=== PATIENT | female | born 1930 | race Caucasian/White ===

== ENCOUNTER 2020-11-29 17:21 | Inpatient (IN) | payer MEDICARE, SELFPAY ==
[~2020-11-29] VITALS: Ht 162.6 cm; Wt 76.7 kg
[2020-11-29 17:37] VITALS: BP_SYST 118
[2020-11-29 18:14] LABS: EOSINOPHILS % (AUTO) 0.5 % (0.0-4.0)
[2020-11-29 18:18] LABS: ANION GAP 10 (5-15); CALCIUM 8.5 mg/dL (8.4-11.0); CHLORIDE 104 mmol/L (98-107); CREATININE 1.14 mg/dL (0.55-1.30); GLUCOSE 145 mg/dL (70-99); POTASSIUM 3.6 mmol/L (3.5-5.1); SODIUM SERUM 138 mmol/L (136-145); UREA NITROGEN, BLOOD 22 mg/dL (8-21)
[2020-11-29 18:24] LABS: ALANINE AMINOTRANSFERASE 41 U/L (12-78); ASPARTATE AMINOTRANSFERASE 52 U/L (10-37); BASOPHILS # (AUTO) 0.2 K/uL (0.0-0.2); BASOPHILS % (AUTO) 4.1 % (0.0-2.0); BILIRUBIN,DIRECT 0.1 mg/dL (0.0-0.3); HEMATOCRIT 40.2 % (36-48); HEMOGLOBIN 13.5 g/dL (12.0-16.0); LIPASE 107 U/L (73-393); LYMPHOCYTES # (AUTO) 1.4 K/uL (1.0-5.5); LYMPHOCYTES % (AUTO) 28.9 % (20.5-51.5); MEAN CORPUSCULAR HEMOGLOBIN 32 pg (27-31); MEAN CORPUSCULAR HGB CONC 34 % (32-36); MEAN CORPUSCULAR VOLUME 96 fL (79.0-98.0); MONOCYTES # (AUTO) 0.3 K/uL (0.0-1.0); NEUTROPHILS # (AUTO) 2.9 K/uL (1.8-7.7); NEUTROPHILS % (AUTO) 60.5 % (40.0-70.0); PLATELET COUNT (AUTO) 140 K/uL (130-430); RED CELL DISTRIBUTION WIDTH 14.1 % (9.0-15.0); TOTAL BILIRUBIN 0.4 mg/dL (0.0-1.0); WHITE BLOOD COUNT (AUTO) 4.8 K/uL (4.8-10.8)
[2020-11-29] MEDS ORDERED: LEVO25TA76 PO (18:26)
[2020-11-29] MEDS ORDERED: ASPI-859 PO (18:26)
[2020-11-29] MEDS ORDERED: BENZ100C92 PO (18:26)
[2020-11-29] MEDS ORDERED: ALLO100T91 PO (18:26)
[2020-11-29] MEDS ORDERED: IRBE75TA29 PO (18:26)
[2020-11-29] MEDS ORDERED: METO-542 (18:26)
[2020-11-29] MEDS ORDERED: AMLO5TAB92 PO (18:26)
[2020-11-29] MEDS ORDERED: ATOR20TA64 PO (18:26)
[2020-11-29 18:44] LABS: C-REACTIVE PROTEIN QUANT 5.6 mg/dL (0-0.5)
[2020-11-29] MEDS ORDERED: AZITHROMYCIN 500 MG in NS 250 ML IV ONE (18:45)
[2020-11-29] MEDS ORDERED: DEXAMETHASONE SOD PHOSPHATE 10 MG/ML VIAL IVP ONE (18:45)
[2020-11-29] MEDS ORDERED: cefTRIAXone 1 GM VIAL IM ONE (18:45)
[2020-11-29] MEDS ORDERED: ASPIRIN 325 MG TABLET PO ONE (18:45)
[2020-11-29] MEDS ORDERED: AZITHROMYCIN 500 MG/VIAL (ZITHROMAX) IV ONE (19:26)
[2020-11-29] MEDS ORDERED: ceFAZolin SODIUM 1 GM VIAL ONE (20:52)
[2020-11-29] MEDS ORDERED: cefTRIAXone 1 GM VIAL ONE (20:54)
[2020-11-29 22:08] LABS: INR 0.9 (0.8-1.2); PROTHROMBIN TIME 9.6 SECS (9.5-12.5)
[2020-11-29] MEDS ORDERED: HYDROcodone/ACETAMIN 5-325 MG TAB (NORCO/ VICODIN) PO PRN (23:15)
[2020-11-29] MEDS ORDERED: ACETAMINOPHEN 325 MG TABLET PO PRN (23:15)
[2020-11-29] MEDS ORDERED: cefTRIAXone 2 GM VIAL ONE (23:40)
[2020-11-30] MEDS ORDERED: ENOXAPARIN SODIUM 40 MG/0.4 ML SYRINGE ONE ×2 (00:06→22:53)
[2020-11-30] MEDS: ENOXAPARIN SODIUM 40 MG/0.4 ML SYRINGE SUBCUT SCH ×3 (00:11→22:30)
[2020-11-30 02:34] LABS: BILIRUBIN,URINE NEGATIVE (NEGATIVE); BLOOD, URINE NEGATIVE (NEGATIVE); CLARITY/URINE CLEAR (CLEAR); COLOR,URINE YELLOW (YELLOW); GLUCOSE,URINE TRACE (NEGATIVE); KETONES,URINE NEGATIVE (NEGATIVE); LEUKOCYTE ESTERASE ,URINE NEGATIVE (NEGATIVE); NITRITE, URINE NEGATIVE (NEGATIVE); PROTEIN URINE 1+ (NEGATIVE); UROBILINOGEN,URINE 0.2 (0.2-1.0)
[2020-11-30 04:00] VITALS: BP_SYST 124
[2020-11-30] MEDS: NORMAL SALINE 5 ML DISP.SYRIN IVF SCH ×3 (06:17→22:00)
[2020-11-30 08:22] LABS: BASOPHILS % (AUTO) 0.2 % (0.0-2.0); HEMATOCRIT 40.9 % (36-48); LYMPHOCYTES # (AUTO) 0.7 K/uL (1.0-5.5); LYMPHOCYTES % (AUTO) 25.3 % (20.5-51.5); MEAN CORPUSCULAR HEMOGLOBIN 32 pg (27-31); MEAN CORPUSCULAR HGB CONC 34 % (32-36); MEAN CORPUSCULAR VOLUME 95 fL (79.0-98.0); MONOCYTES # (AUTO) 0.1 K/uL (0.0-1.0); MONOCYTES % (AUTO) 4.6 % (1.7-9.3); NEUTROPHILS # (AUTO) 1.9 K/uL (1.8-7.7); NEUTROPHILS % (AUTO) 69.9 % (40.0-70.0); PLATELET COUNT (AUTO) 132 K/uL (130-430); RED BLOOD CELL COUNT(AUTO) 4.32 MIL/uL (4.2-6.2); RED CELL DISTRIBUTION WIDTH 13.7 % (9.0-15.0); WHITE BLOOD COUNT (AUTO) 2.7 K/uL (4.8-10.8)
[2020-11-30 08:43] LABS: ALANINE AMINOTRANSFERASE 46 U/L (12-78); ALBUMIN 2.9 g/dL (3.4-4.8); ANION GAP 11 (5-15); ASPARTATE AMINOTRANSFERASE 47 U/L (10-37); CALCIUM 8.5 mg/dL (8.4-11.0); CHLORIDE 106 mmol/L (98-107); CREATININE 0.88 mg/dL (0.55-1.30); GLUCOSE 167 mg/dL (70-99); POTASSIUM 4.4 mmol/L (3.5-5.1); SODIUM SERUM 142 mmol/L (136-145); TOTAL BILIRUBIN 0.2 mg/dL (0.0-1.0); UREA NITROGEN, BLOOD 21 mg/dL (8-21)
[2020-11-30 08:54] LABS: C-REACTIVE PROTEIN QUANT 5.1 mg/dL (0-0.5)
[2020-11-30] MEDS: LEVOTHYROXINE SODIUM 0.025 MG TABLET PO SCH (10:30)
[2020-11-30] MEDS: DEXAMETHASONE SOD PHOSPHATE 4 MG/ML VIAL IVP SCH (10:30)
[2020-11-30] MEDS: amLODIPine BESYLATE 5 MG TABLET PO SCH (10:30)
[2020-11-30] MEDS: ASPIRIN 81 MG TABLET(ECOTRIN) PO SCH (10:30)
[2020-11-30] MEDS: ALLOPURINOL 100 MG TABLET (ZYLOPRIM) PO SCH (10:30)
[2020-11-30] MEDS: ATORVASTATIN 20 MG TABLET PO SCH (10:30)
[2020-11-30] MEDS: METOPROLOL SUCCINATE 50 MG TAB.SR.24H (TOPROL XL) PO SCH (10:30)
[2020-11-30 14:22] VITALS: BP_SYST 112
[2020-11-30 16:02] VITALS: BP_SYST 122
[2020-11-30 20:00] VITALS: BP_SYST 124
[2020-11-30] MEDS ORDERED: AZITHROMYCIN 500 MG in NS 250 ML IV SCH (21:00)
[2020-11-30] MEDS ORDERED: cefTRIAXone 1 GM IVPB PREMIX 0 ML IV ONE (22:14)
[2020-11-30] MEDS ORDERED: AZITHROMYCIN 500 MG/VIAL (ZITHROMAX) IV ONE (22:14)
[2020-11-30] MEDS ORDERED: cefTRIAXone 1 GM VIAL ONE (22:20)
[2020-12-01] VITALS: BP_SYST 118
[2020-12-01] MEDS: NORMAL SALINE 5 ML DISP.SYRIN IVF SCH ×2 (05:36→14:00)
[2020-12-01 06:59] LABS: BASOPHILS % (AUTO) 0.2 % (0.0-2.0); HEMATOCRIT 40.8 % (36-48); LYMPHOCYTES # (AUTO) 1.1 K/uL (1.0-5.5); LYMPHOCYTES % (AUTO) 10.8 % (20.5-51.5); MEAN CORPUSCULAR HEMOGLOBIN 32 pg (27-31); MEAN CORPUSCULAR HGB CONC 34 % (32-36); MEAN CORPUSCULAR VOLUME 94 fL (79.0-98.0); MONOCYTES # (AUTO) 0.5 K/uL (0.0-1.0); MONOCYTES % (AUTO) 4.9 % (1.7-9.3); NEUTROPHILS # (AUTO) 8.7 K/uL (1.8-7.7); NEUTROPHILS % (AUTO) 84.1 % (40.0-70.0); PLATELET COUNT (AUTO) 166 K/uL (130-430); RED BLOOD CELL COUNT(AUTO) 4.32 MIL/uL (4.2-6.2); RED CELL DISTRIBUTION WIDTH 13.9 % (9.0-15.0); WHITE BLOOD COUNT (AUTO) 10.3 K/uL (4.8-10.8)
[2020-12-01 07:19] LABS: ALANINE AMINOTRANSFERASE 51 U/L (12-78); ALBUMIN 2.8 g/dL (3.4-4.8); ANION GAP 10 (5-15); ASPARTATE AMINOTRANSFERASE 50 U/L (10-37); CALCIUM 8.8 mg/dL (8.4-11.0); CHLORIDE 104 mmol/L (98-107); CREATININE 0.94 mg/dL (0.55-1.30); GLUCOSE 125 mg/dL (70-99); POTASSIUM 4.2 mmol/L (3.5-5.1); SODIUM SERUM 140 mmol/L (136-145); TOTAL BILIRUBIN 0.3 mg/dL (0.0-1.0); UREA NITROGEN, BLOOD 24 mg/dL (8-21)
[2020-12-01 08:00] VITALS: BP_SYST 149
[2020-12-01] MEDS: ASPIRIN 81 MG TABLET(ECOTRIN) PO SCH (09:12)
[2020-12-01] MEDS: ATORVASTATIN 20 MG TABLET PO SCH (09:12)
[2020-12-01] MEDS: LEVOTHYROXINE SODIUM 0.025 MG TABLET PO SCH (09:13)
[2020-12-01] MEDS: amLODIPine BESYLATE 5 MG TABLET PO SCH (09:13)
[2020-12-01] MEDS: ALLOPURINOL 100 MG TABLET (ZYLOPRIM) PO SCH (09:14)
[2020-12-01] MEDS: METOPROLOL SUCCINATE 50 MG TAB.SR.24H (TOPROL XL) PO SCH (09:14)
[2020-12-01] MEDS: DEXAMETHASONE SOD PHOSPHATE 4 MG/ML VIAL IVP SCH (09:15)
[2020-12-01] MEDS: ENOXAPARIN SODIUM 40 MG/0.4 ML SYRINGE SUBCUT SCH (09:15)
[2020-12-01] MEDS ORDERED: ENOXAPARIN SODIUM 40 MG/0.4 ML SYRINGE ONE (09:17)
[2020-12-01 11:05] VITALS: BP_SYST 139
[2020-12-01] MEDS ORDERED: DEC4 PO (15:31)
[2020-12-01] MEDS ORDERED: AMOX-426 PO (15:33)
[2020-12-01 15:35] VITALS: BP_SYST 135
[2020-12-01 16:05] VITALS: BP_SYST 118
== END 2020-12-01 17:00 | disposition home or self-care (01) | DRG 871 ==
LOC: SED 17:21 → STU 22:56 → SMU 12-01 12:24
PROVIDERS: ADMIT Internal Medicine Hospice and Palliative Medicine; ATTEND Internal Medicine Hospice and Palliative Medicine
DX: A41.9 Sepsis, unspecified organism (principal); U07.1 COVID-19; I21.4 Non-ST elevation (NSTEMI) myocardial infarction; J96.21 Acute and chronic respiratory failure with hypoxia; J12.82 Pneumonia due to coronavirus disease 2019; E03.9 Hypothyroidism, unspecified; E78.5 Hyperlipidemia, unspecified; I10 Essential (primary) hypertension
CPT/HCPCS: 36415; 71045; 80048; 80053; 80076; 81003; 82728; 83605; 83690-TC; 83880; 84484; 85025; 85379; 85384-TC; 85610-TC; 85730-TC; 86140; 87040-TC; 93005; 96365; 96375; 99285; J0456; J0690; J0696; J1100; J1650; J7040; J7050; J7060; U0003

== ENCOUNTER 2020-12-03 15:07 | Inpatient (IN) | payer MEDICARE, SELFPAY ==
[~2020-12-03] VITALS: Ht 142.2 cm; Wt 60.8 kg
[~2020-12-03 15:07] MED LIST: ALLO100T91 PO; AMLO5TAB92 PO; AMOX-426 PO; ASPI-859 PO; ATOR20TA64 PO; BENZ100C92 PO; DEC4 PO; IRBE75TA29 PO; LEVO25TA76 PO; METO-542
[2020-12-03 15:25] VITALS: BP_SYST 139
--- NOTE | 2020-12-03 15:31 | NUR ---
Placed in room FT3 . Placed on hall monitor, blood pressure machine and pulse oximeter. To gown for exam. Side rails up.
--- NOTE | 2020-12-03 16:29 | NUR ---
MARIA TO ASSUME CARE, PT CALM, ALERT, RESP TACHYPNEIC, CALM, UNLABORED, DENIES CP/SOB. FULL COMPLETE SENTNECES, SKIN WARM AND DRY
[2020-12-03 17:30] LABS: BASOPHILS % (AUTO) 0.1 % (0.0-2.0); HEMATOCRIT 43.2 % (36-48); HEMOGLOBIN 14.7 g/dL (12.0-16.0); LYMPHOCYTES # (AUTO) 0.7 K/uL (1.0-5.5); LYMPHOCYTES % (AUTO) 5.6 % (20.5-51.5); MEAN CORPUSCULAR HEMOGLOBIN 32 pg (27-31); MEAN CORPUSCULAR HGB CONC 34 % (32-36); MEAN CORPUSCULAR VOLUME 95 fL (79.0-98.0); MONOCYTES # (AUTO) 0.6 K/uL (0.0-1.0); MONOCYTES % (AUTO) 5.1 % (1.7-9.3); NEUTROPHILS # (AUTO) 10.8 K/uL (1.8-7.7); NEUTROPHILS % (AUTO) 89.2 % (40.0-70.0); PLATELET COUNT (AUTO) 210 K/uL (130-430); RED BLOOD CELL COUNT(AUTO) 4.55 MIL/uL (4.2-6.2); RED CELL DISTRIBUTION WIDTH 13.7 % (9.0-15.0); WHITE BLOOD COUNT (AUTO) 12.1 K/uL (4.8-10.8)
[2020-12-03 17:53] LABS: ANION GAP 11 (5-15); CALCIUM 9.1 mg/dL (8.4-11.0); CHLORIDE 100 mmol/L (98-107); CREATININE 1.13 mg/dL (0.55-1.30); GLUCOSE 265 mg/dL (70-99); POTASSIUM 4.1 mmol/L (3.5-5.1); SODIUM SERUM 136 mmol/L (136-145); UREA NITROGEN, BLOOD 25 mg/dL (8-21)
--- NOTE | 2020-12-03 17:57 | NUR ---
LABS OBTAINED, BLANKET PROVIDED, RESP UNLABORED, NO DISTRESS
[2020-12-03] MEDS ORDERED: AUG875 PO (18:03)
[2020-12-03 18:15] LABS: ALANINE AMINOTRANSFERASE 110 U/L (12-78); ALBUMIN 2.9 g/dL (3.4-4.8); ASPARTATE AMINOTRANSFERASE 75 U/L (10-37); BILIRUBIN,DIRECT 0.2 mg/dL (0.0-0.3); TOTAL BILIRUBIN 0.5 mg/dL (0.0-1.0)
--- NOTE | 2020-12-03 20:18 | NUR ---
ALERT, CALM, RESP UNLABORED, NO DISTRESS,
--- NOTE | 2020-12-03 21:52 | NUR ---
UP AMBULATING STEADY GAIT TO BATHROOM, PLACED BACK IN BED W/OUT INCIDENT
[2020-12-03] MEDS ORDERED: DEXAMETHASONE SOD PHOSPHATE 4 MG/ML VIAL IVP ONE (22:15)
[2020-12-03] MEDS ORDERED: DEXAMETHASONE SOD PHOSPHATE 10 MG/ML VIAL ONE (22:40)
--- NOTE | 2020-12-03 22:54 | NUR ---
Patient will be admitted to care of Dr Calles. Admitted to tele unit. Belongings list completed. Complete and up to date summary report printed. SBAR report to be given at bedside with opportunity for questions.
--- NOTE | 2020-12-03 23:05 | NUR ---
SLEEPING, EASILY AROUSED, CALM, ALERT, RESP UNLABORED.
[2020-12-04] MEDS ORDERED: NALOXONE HCL 0.4 MG/ML AMP (NARCAN) IVP PRN
[2020-12-04] MEDS ORDERED: guaiFENesin 200 MG/10 ML UDC PO PRN
[2020-12-04] MEDS ORDERED: ACETAMINOPHEN 325 MG TABLET PO PRN
[2020-12-04] MEDS ORDERED: HYDROcodone/ACETAMIN 5-325 MG TAB (NORCO/ VICODIN) PO PRN
[2020-12-04] MEDS ORDERED: AZITHROMYCIN 500 MG/VIAL (ZITHROMAX) IV ONE (00:59)
[2020-12-04] MEDS ORDERED: cefTRIAXone 1 GM VIAL ONE (00:59)
[2020-12-04] MEDS: cefTRIAXone 1 GM IVPB PREMIX 50 ML IV SCH (01:37)
--- NOTE | 2020-12-04 01:40 | NUR ---
Report given to KATE De La Cruz for continuation of care
[2020-12-04] MEDS: AZITHROMYCIN 500 MG in NS 250 ML IV SCH (01:50)
--- NOTE | 2020-12-04 07:05 | NUR ---
Assumed care of patient, report received from KATE De La Cruz. Pt currently resting right in bed, v/s stable, no distress noted.
[2020-12-04 07:06] LABS: BASOPHILS % (AUTO) 0.2 % (0.0-2.0); HEMATOCRIT 41.9 % (36-48); HEMOGLOBIN 14.1 g/dL (12.0-16.0); LYMPHOCYTES # (AUTO) 0.8 K/uL (1.0-5.5); LYMPHOCYTES % (AUTO) 6.5 % (20.5-51.5); MEAN CORPUSCULAR HEMOGLOBIN 32 pg (27-31); MEAN CORPUSCULAR HGB CONC 34 % (32-36); MEAN CORPUSCULAR VOLUME 96 fL (79.0-98.0); MONOCYTES # (AUTO) 0.7 K/uL (0.0-1.0); MONOCYTES % (AUTO) 5.3 % (1.7-9.3); NEUTROPHILS # (AUTO) 11.3 K/uL (1.8-7.7); PLATELET COUNT (AUTO) 249 K/uL (130-430); RED BLOOD CELL COUNT(AUTO) 4.37 MIL/uL (4.2-6.2); RED CELL DISTRIBUTION WIDTH 13.6 % (9.0-15.0); WHITE BLOOD COUNT (AUTO) 12.9 K/uL (4.8-10.8)
--- NOTE | 2020-12-04 07:20 | NUR ---
Pt repositioned to left side, pillows placed behind back and between legs. HOB elevated above 30 degrees. Pt tolerated well.
[2020-12-04 07:39] LABS: ALANINE AMINOTRANSFERASE 91 U/L (12-78); ALBUMIN 2.6 g/dL (3.4-4.8); ANION GAP 12 (5-15); ASPARTATE AMINOTRANSFERASE 51 U/L (10-37); CALCIUM 8.7 mg/dL (8.4-11.0); CHLORIDE 102 mmol/L (98-107); CREATININE 0.83 mg/dL (0.55-1.30); GLUCOSE 205 mg/dL (70-99); POTASSIUM 4.4 mmol/L (3.5-5.1); SODIUM SERUM 139 mmol/L (136-145); TOTAL BILIRUBIN 0.6 mg/dL (0.0-1.0); UREA NITROGEN, BLOOD 22 mg/dL (8-21)
[2020-12-04] MEDS ORDERED: METOPROLOL SUCCINATE 50 MG TAB.SR.24H (TOPROL XL) PO SCH (09:00)
[2020-12-04] MEDS ORDERED: LEVOTHYROXINE SODIUM 0.025 MG TABLET PO SCH (09:00)
--- NOTE | 2020-12-04 09:00 | NUR ---
Pt alert and oriented, able to reposition self. Encouraged to change positions q2hrs and prn. Pt verbalized understanding.
--- NOTE | 2020-12-04 09:45 | NUR ---
Pt's AM medications not on unit, notified pharmacy.
--- NOTE | 2020-12-04 11:52 | NUR ---
Pt's medications not here, jeni So in pharmacy, stated she will bring them over to me.
--- NOTE | 2020-12-04 12:15 | NUR ---
Lunch tray provided to patient.
[2020-12-04] MEDS: LOSARTAN POTASSIUM 25 MG TABLET PO SCH (12:34)
[2020-12-04] MEDS: ASPIRIN 81 MG TABLET(ECOTRIN) PO SCH (12:34)
[2020-12-04] MEDS: DECADRON 4 MG TABLET PO SCH (12:34)
[2020-12-04] MEDS: ATORVASTATIN 20 MG TABLET PO SCH (12:34)
[2020-12-04] MEDS: amLODIPine BESYLATE 5 MG TABLET PO SCH (12:36)
[2020-12-04] MEDS: ALLOPURINOL 100 MG TABLET (ZYLOPRIM) PO SCH (12:37)
[2020-12-04] MEDS: BENZONATATE 100 MG CAPSULE (TESSALON) PO SCH (12:37)
[2020-12-04] MEDS: ENOXAPARIN SODIUM 40 MG/0.4 ML SYRINGE SUBCUT SCH ×2 (12:38→21:00)
[2020-12-04] MEDS: INSULIN REGULAR, HUMAN 100 UNITS/ML, 10 ML VIAL (humuLIN R) SUBCUT PRN ×3 (12:39→23:36)
--- NOTE | 2020-12-04 13:11 | NUR ---
Pt downgraded to Tele, JODIE Weaver, charge hand, pt will go to 116B, she is going to lunch and she will call us when the bed is ready.
--- NOTE | 2020-12-04 13:34 | NUR ---
Pt states she does not want to eat at this time, pt reasssured, NRB mask placed on patient , explained importance of keeping mask on.
--- NOTE | 2020-12-04 14:05 | NUR ---
Patient will be admitted to care of Dr Kaminski . Admitted to Tele unit. Will go to room 116B. Belongings list completed. Complete and up to date summary report printed. SBAR report to be given at bedside with opportunity for questions.
[2020-12-04 14:18] VITALS: BP_SYST 140
[2020-12-04 16:11] VITALS: BP_SYST 124
[2020-12-04 20:00] VITALS: BP_SYST 144
[2020-12-05] MEDS: cefTRIAXone 1 GM IVPB PREMIX 50 ML IV SCH
[2020-12-05] MEDS: LEVOTHYROXINE SODIUM 0.025 MG TABLET PO SCH (06:14)
[2020-12-05 08:30] VITALS: BP_SYST 146; BP_SYST 154
[2020-12-05] MEDS: ENOXAPARIN SODIUM 40 MG/0.4 ML SYRINGE SUBCUT SCH ×2 (09:00→21:00)
[2020-12-05] MEDS: DECADRON 4 MG TABLET PO SCH (10:18)
[2020-12-05] MEDS: amLODIPine BESYLATE 5 MG TABLET PO SCH (10:19)
[2020-12-05] MEDS: ASPIRIN 81 MG TABLET(ECOTRIN) PO SCH (10:19)
[2020-12-05] MEDS: ATORVASTATIN 20 MG TABLET PO SCH (10:19)
[2020-12-05] MEDS: BENZONATATE 100 MG CAPSULE (TESSALON) PO SCH (10:20)
[2020-12-05] MEDS: METOPROLOL SUCCINATE 25 MG TAB.SR.24H (TOPROL XL) PO SCH (10:21)
[2020-12-05] MEDS: LOSARTAN POTASSIUM 25 MG TABLET PO SCH (10:22)
[2020-12-05] MEDS: ALLOPURINOL 100 MG TABLET (ZYLOPRIM) PO SCH (10:22)
[2020-12-05 12:53] VITALS: BP_SYST 143
--- NOTE | 2020-12-05 14:58 | NUR ---
INFORMED GEORGETTE LOMBARDI THAT PATIENTS O2 SATS ARE 77 SHE WILL INFORM KATE SANTOS
[2020-12-05 16:30] VITALS: BP_SYST 105
--- NOTE | 2020-12-05 17:45 | NUR ---
DAUGHTER AT THE WINDOW VISITING HER MOTHER (PATIENT). DROPPED OFF PATIENT BLANKET.
[2020-12-05] MEDS: INSULIN REGULAR, HUMAN 100 UNITS/ML, 10 ML VIAL (humuLIN R) SUBCUT PRN ×2 (18:19→21:00)
--- NOTE | 2020-12-05 19:30 | NUR ---
0800: PATIENT IS RESTING IN BED QUIETLY. NO ADDITIONAL DISTRESS NOTED. BE DIN LOW AND LOCK POSITION. CALL LIGHT WITHIN REACH. WILL CONT TO MONITOR. 0900AM: EXPLAINED PLAN OF CARE AND PATIENT VERBALIZED UNDERSTANDING. PATIENT IS AAOX4 ABLE TO MAKE NEEDS KNOWN. ABLE TO SPEAK BULGARIAN BUT PREFERRED MALTESE. WILL CONT TO MONITOR. 1000AM: REFUSED TO EAT BREAKFAST AND WANTS TO SLEEP. NO ADDITIONAL DISTRESS. 1200PM: RESTING IN BED QUIETLY . NO ADDITIONAL DISTRESS. 1400:RESTING IN BED QUIETLY . NO ADDITIONAL DISTRESS. STABLE CONDITION AT THIS TIME. 1600: RESTING IN BED QUIETLY, ASLEEP . NO ADDITIONAL DISTRESS. STABLE CONDITION AT THIS TIME. 1730: PATIENT WENT TO THE RESTROOM AND REMOVED OXYGEN DESAT TO 77% AND INCREASE SOB, FATIGUE, AND ANXIOUS. EDUCATE PATIENT NOT TO GET UP AND REMOVED THE NRB MASK. BEDSIDE COMMODE PLACE AT THE SIDE OF BED. GAVE CALL LIGHT TO PATIENT TO CALL FOR THE NURSE WHEN OOB AND NEEDED ASSISTANCE. RT X2 AT BEDSIDE. 02 SAT WENT TO 89% IN 15L NRB. PATEINT IS LESS SHORT OF BREATH, CALM AT THIS TIME AND ALERT. PER RT, WILL CONT TO MONITOR. PATIENT IS SITTING UP IN THE BED 90 DEGREE. NO ADDITIONAL DISTRESS. PATIENT IS MORE ALERT AND COHERENT. MILD FATIGUE NOTED. WILL CONT TO MONITOR. 1800: RESTING IN BED QUIETLY. NO ADDITIONAL DISTRESS. STABLE CONDITION AT THIS TIME. PATIENT IS CALM, ALERT AND COHERENT. DENIES DISTRESS AT THIS TIME. 02 SAT 89%. 1900: RESTING IN BED QUIETLY. NO ADDITIONAL DISTRESS. STABLE CONDITION AT THIS TIME.WILL CONT TO MONITOR.
--- NOTE | 2020-12-05 19:31 | NUR ---
OPENING NOTE REPORT RECEIVED FROM DAYSHIFT NURSE. PATIENT RECEIVED LYING IN BED, HOB RAISED, NO S/S OF ACUTE DISTRESS, PATIENT DENIES PAIN. NRB MASK ATTACHED PROPERLY, ON 15L OF OXYGEN. IV SITE PATENT, NO SIGNS OF INFILTRATION OR INFECTION NOTED. SKIN WARM AND DRY TO TOUCH. CALL LIGHT WITH PATIENT. BED ALARM ON. WILL CONTINUE TO MONITOR.
[2020-12-05 20:00] VITALS: BP_SYST 142
[2020-12-05] MEDS: AZITHROMYCIN 500 MG in NS 250 ML IV SCH ×3 (23:30)
[2020-12-06] VITALS: BP_SYST 138
[2020-12-06] MEDS: cefTRIAXone 1 GM IVPB PREMIX 50 ML IV SCH (00:30)
[2020-12-06] MEDS: LEVOTHYROXINE SODIUM 0.025 MG TABLET PO SCH (06:35)
[2020-12-06] MEDS: INSULIN REGULAR, HUMAN 100 UNITS/ML, 10 ML VIAL (humuLIN R) SUBCUT PRN ×4 (06:36→21:00)
--- NOTE | 2020-12-06 07:33 | NUR ---
CLOSING NOTE PATIENT IN BED, RESTING, NO S/S OF ACUTE DISTRESS. HOB RAISED, NRB ATTACHED PROPERLY, ON 15L OF OXYGEN. IV SITE PATENT, NO SIGNS OF INFILTRATION OR INFECTION NOTED. SKIN WARM AND DRY TO TOUCH. ALL NEEDS MET. FALL, SAFETY, ISOLATION PRECAUTIONS MAINTAINED THROUGHOUT SHIFT. PATIENT CARE ENDORSED TO DAYSHIFT NURSE.
[2020-12-06] MEDS: amLODIPine BESYLATE 5 MG TABLET PO SCH (09:00)
[2020-12-06] MEDS: ATORVASTATIN 20 MG TABLET PO SCH (09:00)
[2020-12-06] MEDS: BENZONATATE 100 MG CAPSULE (TESSALON) PO SCH (09:00)
[2020-12-06] MEDS: DECADRON 4 MG TABLET PO SCH (09:00)
[2020-12-06] MEDS: ALLOPURINOL 100 MG TABLET (ZYLOPRIM) PO SCH (09:00)
[2020-12-06] MEDS: METOPROLOL SUCCINATE 25 MG TAB.SR.24H (TOPROL XL) PO SCH (09:00)
[2020-12-06] MEDS: ASPIRIN 81 MG TABLET(ECOTRIN) PO SCH (09:00)
[2020-12-06] MEDS: LOSARTAN POTASSIUM 25 MG TABLET PO SCH (09:08)
[2020-12-06] MEDS: ENOXAPARIN SODIUM 40 MG/0.4 ML SYRINGE SUBCUT SCH ×2 (09:08→21:00)
--- NOTE | 2020-12-06 09:57 | NUR ---
Nutrition Update Gaurang Scale 16 noted. Pt admitted for COVID pneumonia. Diet: [facility] BMI: 30 kg/m2 RD to follow per nutrition care standards.
[2020-12-06 12:00] VITALS: BP_SYST 143
--- NOTE | 2020-12-06 14:00 | NUR ---
Restraints ordered: Patient is alert, oriented x3, but forgetful. She is on Oxygen 15 L/M vis Non rebreather mask, but she keep pulling it out. It makes her Sat O2 drop. Dr. Obrien has telephone ordered for bilateral soft wrist restraints. A daughter is in the room to visit the patient for 10 min, and agrees for the patient to have restraints on.
[2020-12-06 16:22] VITALS: BP_SYST 122
--- NOTE | 2020-12-06 19:30 | NUR ---
OPENING NOTE REPORT RECEIVED FROM DAYSHIFT NURSE. PATIENT RECEIVED LYING IN BED, RESTING AT THIS TIME, BREATHING LABORED, TACHYPNEIC, SPO2 AT 88 ON TELE MONITOR, HOB RAISED, NRB ATTACHED PROPERLY, ON 15L OF OXYGEN. SKIN WARM AND DRY TO TOUCH. IV SITE PATENT, NO SIGNS OF INFILTRATION OR INFECTION NOTED. BILATERAL SOFT WRIST RESTRAINTS IN PLACE, NO SIGNS OF INJURIES NOTED. BED ALARM ON. BED IS LOCKED AND AT LOWEST POSITION. WILL CONTINUE TO MONITOR.
[2020-12-06 20:00] VITALS: BP_SYST 133
[2020-12-06] MEDS: AZITHROMYCIN 500 MG in NS 250 ML IV SCH (23:05)
[2020-12-07] VITALS: BP_SYST 124
[2020-12-07] MEDS: cefTRIAXone 1 GM IVPB PREMIX 50 ML IV SCH (00:52)
--- NOTE | 2020-12-07 04:00 | NUR ---
REMOVE RESTRAINTS/PERICARE PATIENT CLEANED BY OPEN HEARTH FURNACE LABORER AND RN AT THIS TIME. PATIENT REPOSITIONED, PULLED UP ON BED. HOB RAISED, NRB ATTACHED PROPERLY, ON 15L OF OXYGEN. BILATERAL SOFT WRIST RESTRAINTS REMOVED AT THIS TIME, PATIENT LETHARGIC AND NO LONGER PULLING NON REBREATHER MASK, SPO2 AT 85-88 AT THIS TIME. BED ALARM ON. BED IS LOCKED AND AT LOWEST POSITION. ALL NEEDS MET. WILL CONTINUE TO MONITOR.
[2020-12-07] MEDS: LEVOTHYROXINE SODIUM 0.025 MG TABLET PO SCH (06:54)
--- NOTE | 2020-12-07 07:15 | NUR ---
SPOKE WITH DAUGHTER RE: CHANGE OF CONDITION KAROLYN, PATIENT'S DAUGHTER, INFORMED THAT PATIENT'S HEART CURRENTLY AT 60'S, TRENDING DOWN FROM 110-120. PATIENT LESS RESPONSIVE AT THIS TIME. PATIENT REQUESTED TO VISIT AND SEE PATIENT, MECHANICAL EQUIPMENT SALES ENGINEER MADE AWARE, APPROVED. DAYSHIFT NURSE MADE AWARE.
--- NOTE | 2020-12-07 07:15 | NUR ---
INITIAL NOTE,NON RESPONSIVE: PATIENT IS NON RESPONSIVE, SKIN PALE AND COLD, ON OXYGEN 15 L/M VIA NEB MASK. NOTICE THAT SHE IS NO BREATHING. UNABLE TO GET BP , SAT O2=56%, TELE SHOWS SB WITH HR=40s. FAMILY IS INFORMED, AND COMING TO VISIT. MADE AWARE.
--- NOTE | 2020-12-07 07:24 | NUR ---
PAGED I PAGED DR. HARDY I SPOKE WITH MARCELA EXCHANGE
--- NOTE | 2020-12-07 07:25 | NUR ---
DR. HARDY CALLED BACK
--- NOTE | 2020-12-07 07:47 | NUR ---
Pronounced : Patient is non responsive,no breathing, athletic monitor shows Asystole, Pupils dilated and fixed, no reaction to light, no heart sound. Patient is pronounced by 2 RN licences, Charlene Cross and Michelle Stanley. Family, a daughter and a grand daughter, are in the room and aware of the . made aware. House supper visor and admitting are informed.
--- NOTE | 2020-12-07 09:10 | NUR ---
[employer] Flow Floor Attendant called with a case # [id number].
--- NOTE | 2020-12-07 11:10 | NUR ---
Terminal clean: Try to contact [employer]. Spoke to one man but he states that today is Tuesday, no one here, he just answers the phone, but he will tell someone to call us back. Family is aware. Give patient a terminal clean , and put white back with yellow tags in placed.
--- NOTE | 2020-12-07 11:21 | NUR ---
[facility] has called back states that they full has no space for the body, also states that Meg, the daughter is aware. Inform Hospice Volunteer Coordinator, and Security to bean picker the body.
--- NOTE | 2020-12-07 17:11 | NUR ---
SS notes ENVIRONMENTAL ENGINEER received phone call from [facility] asking about patient. ENVIRONMENTAL ENGINEER notified her that patient today around 7:30 am.
--- NOTE | 2020-12-08 16:20 | NUR ---
Mortuary: ELÍAS spoke with Meg patel who stated she has signed up with [facility] for services. Spoke with rental sales representative Rahul @ [phone], who stated their agency is finding a company that he will handle 's cremation services. Rahul will update SS. Addendum: 12/12/20 at 1604 by Zoë Bueno LCSW Phoned Rahul at [facility]. He stated that he has contacted [facility] and [employer] to determine if they will be able to provide cremation services. He will call the Assistant Inventory Manager over the week-end if he is able to machine pecan picker patient remains.
== END 2020-12-07 07:47 | disposition expired | DRG 871 ==
LOC: SED 15:07 → STU 22:52
PROVIDERS: ADMIT Internal Medicine; ATTEND Internal Medicine
PROC: 5A09357 Assistance with Respiratory Ventilation, Less than 24 Consecutive Hours, Continuous Positive Airway Pressure (ICD-10-PCS; principal; 2020-12-04)
DX: A41.9 Sepsis, unspecified organism (principal); U07.1 COVID-19; J96.01 Acute respiratory failure with hypoxia; J12.82 Pneumonia due to coronavirus disease 2019; Z66 Do not resuscitate; Z51.5 Encounter for palliative care; F03.90 Unspecified dementia, unspecified severity, without behavioral disturbance, psychotic disturbance, mood disturbance, and anxiety; I10 Essential (primary) hypertension; E03.9 Hypothyroidism, unspecified; E11.65 Type 2 diabetes mellitus with hyperglycemia; E78.5 Hyperlipidemia, unspecified; Z79.899 Other long term (current) drug therapy
CPT/HCPCS: 36415; 71045; 80048; 80053; 80076; 82962; 83880; 84484; 85025; 87081; 93005; 96374; 99285; G0378; J0456; J0696; J1100; J1650; J7050; J8540